=== PATIENT | male | born 1970 | race African-American/Black ===

== ENCOUNTER 2018-05-26 06:12 | Emergency (ER) | payer OTHER ==
[2018-05-26] MEDS ORDERED: Proparacaine 0.5% Opth 15 ML BOT ONE (06:21)
[2018-05-26] MEDS ORDERED: Fluorescein Opthalmic Strip ONE (06:21)
== END 2018-05-26 07:49 | disposition home or self-care (01) ==
LOC: ERS 06:12
DX: S05.02XA Injury of conjunctiva and corneal abrasion without foreign body, left eye, initial encounter (principal); S05.01XA Injury of conjunctiva and corneal abrasion without foreign body, right eye, initial encounter; I10 Essential (primary) hypertension; F17.210 Nicotine dependence, cigarettes, uncomplicated; X58.XXXA Exposure to other specified factors, initial encounter
CPT/HCPCS: 99283